=== PATIENT | male | born 2000 | race Caucasian/White ===

== ENCOUNTER → 2022-01-26 | Outpatient (CLI) | payer BC, OTHER ==
[2022-01-26 18:02] LABS: ALT 46 U/L (10-49); AST 23 U/L (14-35); Albumin 5.3 g/dL (3.8-4.9); Albumin/Globulin Ratio 2.57 (1.60-3.17); Alkaline Phosphatase 62 U/L (41-126); BUN/Creat Ratio 11.18 Ratio (12.00-20.00); Blood Urea Nitrogen 14.2 mg/dL (9.0-27.0); C Reactive Protein <0.30 mg/dL (0.00-0.80); Calcium 10.1 mg/dL (8.7-10.3); Carbon Dioxide 26.2 mmol/L (20.0-27.5); Chloride 97 mmol/L (96-109); Globulin 2.1 g/dL (1.6-3.3); Glucose 81 mg/dL (70-110); Non-African American GFR(CKD) 80.2 (60.0-200.0); Potassium 4.3 mmol/L (3.5-5.5); Sodium 138 mmol/L (135-145); Total Protein 7.4 g/dL (6.2-8.2)
[2022-01-26 18:04] LABS: Immunoglobulin M 66.3 mg/dL (40.0-280.0)
[2022-01-26 18:16] LABS: Basophils # (A) 0.04 X 10*3/uL (0.00-0.10); Eosinophils # (A) 0.05 X 10*3/uL (0.04-0.35); Eosinophils % (A) 1.2 %; HCT 48.3 % (39.6-50.0); Immature Grans, Automated 0.2 %; Lymphocytes # (A) 1.64 X 10*3/uL (0.90-5.00); Lymphocytes % (A) 39.4 %; MCH 30.7 pg (27.0-32.0); MCHC 35.2 g/dL (32.0-37.0); MCV 87.3 fL (80.0-97.0); Mean Platelet Volume 12.5 fL (9.5-12.2); Monocytes # (A) 0.36 X 10*3/uL (0.20-1.00); Monocytes % (A) 8.7 %; NRBC Per 100 WBC 0 /100 WBCS (0.0-0.0); Neutrophils # (A) 2.06 X 10*3/uL (1.80-7.70); Neutrophils % (A) 49.5 %; Platelet Count 234 X 10*3/uL (140-440); RBC 5.53 X 10*6/uL (4.40-5.60); RDW 11.6 % (11.5-14.5); WBC 4.16 X 10*3/uL (4.50-10.00)
== END | disposition home or self-care (01) ==
LOC: LABWHC1 11:57
PROVIDERS: ATTEND Pediatrics
DX: R10.10 Upper abdominal pain, unspecified (principal); R63.4 Abnormal weight loss
CPT/HCPCS: 36415; 80053; 82784; 83516; 85025; 86140